=== PATIENT | male | born 2000 | race Caucasian/White ===

== ENCOUNTER 2025-01-30 09:37 | Emergency (ER) | payer SELFPAY ==
--- NOTE | 2025-01-30 09:30 | DI.US_ITS ---
Exam(s) US SCROTUM EXAM: US SCROTUM CLINICAL HISTORY: right testicular pain TECHNIQUE: Ultrasound of the testes performed using grayscale, color, and Doppler imaging. COMPARISON: No exams were available for comparison FINDINGS: RIGHT HEMISCROTUM: The right testicle exhibits normal size and echo architecture with no evidence of intratesticular mas s. Vascular flow was demonstrated within the right testicle, including arterial waveforms. The epididymis appears unremarkable. There are no epididymal head cysts. There is no ipsilateral hydrocele nor varicocele. LEFT HEMISCROTUM: The left testicle exhibits normal size and echo architecture with no evidence of intratesticular mass . Vascular flow is demonstrated within the left testicle, including arterial waveforms. There are 2 small epididymal head cysts, both measuring 2 x 2 mm. There is no ipsilateral hydrocele or varicocele. IMPRESSION: 1. No evidence of testicular mass nor testicular torsion. 2. No significant hydroceles nor varicoceles evident. 3. Two small epididymal head cysts are noted on the left side both measuring 2 mm DATA REPOSITORY:
[2025-01-30 09:59] VITALS: BP 116/74; PULSE 80; RESP 16; TEMP 36.6; O2SAT 98
--- NOTE | 2025-01-30 11:30 | ED.GENADUL_ITS ---
Discharge Plan Disposition Patient Disposition: Home Discharge Details Clinical Impression: Pain in right testicle Primary Care Provider: None,None ED Provider: Melanie Pacheco Discharge Instructions Instructions: Epididymitis and orchitis Additional Instructions: At this time I suspect the discomfort in your testicle is secondary to a build up of semen in your epididymus Ejaculation can help improve this buildup of semen If you continue to have discomfort despite the interventions we reviewed, my recommendation would be to start the antibiotic you could have epididymitis although this is a lower on my differential secondary to lack of an obvious s ource, your urinalysis does not look like it is infected and you have not been sexually active so unlikely. I have listed a referral for the urologist and I recommend establishing care with a primary care physician I will also place a referral for this Return should develop fever, chills, or with any new or worsening complaints Referrals: Aki Diane MD [ [facility] STAFF PHYSICIAN] - 1 week HPI General Date/Time Provider Initiated Documentation: 01/30/25 09:40 . HPI Narrative: 24-year-old male with intermittent right testicular pain for 1.5 weeks. Reports constant, aching pain intensified by ambulation. Decreased masturbation due to concern of frequency. Never sexually active. 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 No primary care physician. Denies dysuria, urinary frequency, flank pain, hematuria, fever, chills, or penile discharge. Experienced two e pisodes of morning ejaculation this week. Sought medical attention twice this week for anxiety. General Stated Complaint: Male Reproductive Problem KENDY: 4 Exam Narrative Exam Narrative: General Appearance: Alert and oriented, no acute distress. Vital signs: Within normal limits. HEENT: Within normal limits. Respiratory: Within normal limits. Gastrointestinal: No inguinal hernia or abdominal tenderness. Genitourinary: Male: Palpable tenderness in right testicle without swelling, mass, or lesion. Skin: No skin rashes or lesions. Neurological: Normal. Course Vital Signs Vital signs: Vital Signs Temperature 36.6 C 01/30/25 09:59 Pulse 80 01/30/25 09:59 Respiratory Rate 16 01/30/25 09:59 Blood Pressure 116/74 01/30/25 09:59 Pulse Oximetry 98 01/30/25 09:59 Temperature 36.6 C 01/30/25 09:59 Pulse 80 01/30/25 09:59 Respiratory Rate 16 01/30/25 09:59 Blood Pressure 116/74 01/30/25 09:59 Pulse Oximetry 98 01/30/25 09:59 Pain Level 3 01/30/25 09:59 Medical Decision Making Urinalysis clear. Testicular ultrasound shows no acute abnormality or testicular torsion. initial Assessment: 24-year-old male with right testicular pain for 1-1/2 weeks, worse with walking, no fever, chills, or abnormal drainage. No dysuria, frequency, flank pain, or blood in ejaculate or urination. Decreased masturbation due to concern of frequency. No sexual activity history. Evaluated twice this week for anxiety. No primary care physician. Differential Diagnosis: - STI: Unlikely due to lack of sexual activity. - Epididymitis: Unlikely due to clear urinalysis and lack of sexual activity. - Sperm accumulation in epididymis: Possible due to sudden decrease in masturbation. ED Course: - Palpable tenderness to right testicle without swelling, mass, or lesion. - No palpable inguinal hernia or abdominal tenderness. - Urinalysis clear. - Testicular ultrasound shows no acute abnormality, no evidence of testicular torsion. - Prescription for Bactrim daily for 10 days if pain persists after ejaculation. - Referral to urology. - Return precautions reviewed, patient understood. Final Assessment: Right testicular pain likely related to sperm accumulation in epididymis due to cessation of frequent masturbation. Low likelihood of STI or epididymitis. Clinical Impression: - Right testicular pain Disposition: - Discharge - Follow-Up: Referral to urology MDM Components Evaluation: - Number of Differential Diagnoses or Management Options: STI, Epididymitis, Sperm accumulation in epididymis - Amount and Complexity of Data Reviewed: Urinalysis, Testicular ultrasound - Risk of Complication and Morbidity or Mortality: Low risk given clear urinalysis and ultrasound results, and lack of sexual activity. Quality:SDOH Health Related Social Needs: No Data to Display PFSH All Active Problems (Updated 01/30/25 @ 12:24 by CHLOÉ Bates) Pain in right testicle (Acute) Social History Smoking/Tobacco Use Status: Never Smoking risk assessment performed?: Yes Alcohol Intake: current Alcohol Intake frequency: 0-2 drinks per day Alcohol type: beer Drug use: Daily Substance use type: marijuana Do you feel safe at home: Yes Do you feel safe in your relationship?: Yes
[2025-01-30 12:34] LABS: Bilirubin Negative (Negative); Blood Negative (Negative); Clarity Clear (Clear); Glucose Negative (Negative); Ketones Negative (Negative); Leukocyte Esterase Negative (Negative); Nitrite Negative (Negative); Urobilinogen 0.2 mg/dL (Up to 0.2)
[2025-01-30 12:57] VITALS: BP 116/74; PULSE 80; RESP 16; TEMP 36.6; O2SAT 98
[2025-01-31 13:02] LABS: Chlamydia Result Negative (Negative); GC Result Negative (Negative)
== END 2025-01-30 12:57 | disposition home or self-care (01) ==
PROVIDERS: Emergency Provider Physician Assistant
DX: N50.811 Right testicular pain (principal)
CPT/HCPCS: 87491; 87591; 99284; 76870; 81003; 99283